=== PATIENT | female | born 1995 | race Caucasian/White ===

== ENCOUNTER 2016-09-21 07:27 | Emergency (ER) | payer MEDICAID, OTHER ==
[2016-09-21 07:46] VITALS: BP 120/72; PULSE 84; RESP 16; TEMP 98.8; O2SAT 94
[2016-09-21] MEDS ORDERED: ONDANSETRON DISINTEGRATING 4 MG TAB PO ONE (07:57)
[2016-09-21] MEDS ORDERED: NS 1,000 ML IV ONE (07:57)
--- NOTE | 2016-09-21 07:59 | UCPHY ---
H & P Patient Type: Established Chief Complaint Nursing Narrative: diarrhea last night, ross this am x 2 Time Seen by Provider: 09/21/16 07:48 HPI/ROS: This patient reports onset of diarrhea yesterday that is described as loose light brown stool-4-5 episodes. She awakened with onset of nausea and vomiting at 3 mm had 4 -5 episodes of vomiting and dry heaving since then with ongoing nausea currently. She also notes mild urinary frequency but no other urinary symptoms. She has been unable to tolerate p.o. fluids or food due to her nausea and vomiting. She notes no exacerbating or alleviating factors. ROS: Constitutional: No fevers or chills. HEENT: No cold symptoms Pulmonary: No cough or shortness of breath Cardiac: No lightheadedness or syncope GI: She reports abdominal cramping lower belly more than upper-mild most prominent shortly prior to vomiting. : She denies dysuria. Last menstrual period was August 22. No vaginal discharge. Musculoskeletal: No significant myalgias. Endocrine: No symptoms 10 point ROS is otherwise negative Source: Patient Exam Limitations: No limitations - Personal History LMP (Females 10-55): Over 28 Days Ago - Medical/Surgical History Hx Asthma: No Hx Chronic Respiratory Disease: No Hx Diabetes: No Hx Cardiac Disease: No Hx Renal Disease: No Hx Cirrhosis: No Hx Alcoholism: No Hx HIV/AIDS: No Hx Splenectomy or Spleen Trauma: No Other PMH: - Family History Significant Family History: No pertinent family hx - Social History Smoking Status: Never smoked Alcohol Use: Occasionally Drug Use: Marijuana - Physical Exam Exam: General Appearance: Moderately obese 21-year-old female Alert, no distress. Eyes: Pupils equal and round no pallor or injection. ENT, Mouth: Mucous membranes dry. Respiratory: There are no retractions, lungs are clear to auscultation. Cardiovascular: Regular rate and rhythm. Gastrointestinal: She has mild suprapubic tenderness. Hyperactive bowel sounds no guarding or rebound. No organomegaly Back: No clear CVA tenderness Neurological: Alert with no focal deficits Skin: Warm and dry, no rashes. Musculoskeletal: Neck is supple nontender. Extremities are symmetrical, full range of motion. Psychiatric: Mood and affect normal DIFFERENTIAL DIAGNOSIS: After history and physical exam differential diagnosis was considered for gastroenteritis-viral with cystitis, dehydration, pyelonephritis with complication of vomiting and loose stools, rule out Constitutional: Initial Vital Signs Temperature (C) 37.1 C 09/21/16 07:41 Heart Rate 84 09/21/16 07:41 Respiratory Rate 16 09/21/16 07:41 Blood Pressure 120/72 09/21/16 07:41 O2 Sat (%) 94 09/21/16 07:41 O2 Delivery Mode Room Air Allergies/Adverse Reactions: No Known Allergies Allergy (Unverified 10/31/14 16:55) Home Medications: Medication Instructions Recorded Cefdinir [Omnicef (*)] 300 mg PO BID #14 cap 09/21/16 Ondansetron Odt [Zofran Odt] 4 - 8 mg PO Q4PRN PRN #4 tab 09/21/16 Medical Decision Making ED Course/Re-evaluation: Urinalysis reveals pyuria [place] bacteria [place] [id number] Chemistries normal exception of mild hyperglycemia test is negative Patient is treated with IV normal saline bolus, Zofran with resolution of nausea vomiting. She tolerated p. o. fluids thereafter Ceftriaxone IV for UTI that I think is likely a pyelonephritis causing her vomiting given the associated leukocytosis, pyuria, bacteria. After treatment patient appears well. Final evidence of sepsis or other concerning findings. Rule out and she is tolerating p.o. intake at this point. - Data Points Laboratory Results: Laboratory Results 09/21/16 08:15 09/21/16 08:15 09/21/16 09/21/16 08:15 07:55 WBC 13.79 H 10^3/uL (3.80-9.50) RBC 4.76 10^6/uL (4.18-5.33) Hgb 14.1 g/dL (12.6-16.3) Hct 41.4 % (38.0-47.0) MCV 87.0 fL (81.5-99.8) MCH 29.6 pg (27.9-34.1) MCHC 34.1 g/dL (32.4-36.7) RDW 12.5 % (11.5-15.2) Plt Count 262 10^3/uL (150-400) MPV 9.5 fL (8.7-11.7) Neut % (Auto) 91.0 H % (39.3-74.2) Lymph % (Auto) 3.5 L % (15.0-45.0) [place] % (Auto) 4.4 L % (4.5-13.0) Eos % (Auto) 0.1 L % (0.6-7.6) Baso % (Auto) 0.3 % (0.3-1.7) Nucleat RBC Rel Count 0.0 % (0.0-0.2) Absolute Neuts (auto) 12.57 H 10^3/uL (1.70-6.50) Absolute Lymphs (auto) 0.48 L 10^3/uL (1.00-3.00) Absolute Monos (auto) 0.60 10^3/uL (0.30-0.80) Absolute Eos (auto) 0.01 L 10^3/uL (0.03-0.40) Absolute Basos (auto) 0.04 10^3/uL (0.02-0.10) Absolute Nucleated RBC 0.00 10^3/uL (0-0.01) Immature Gran % 0.7 % (0.0-1.1) Immature Gran # 0.09 10^3/uL (0.00-0.10) Sodium 141 mEq/L (134-144) Potassium 4.1 mEq/L (3.5-5.2) Chloride 107 mEq/L (97-110) Carbon Dioxide 21 L mEq/l (22-31) Anion Gap 13 mEq/L (8-16) BUN 10 mg/dL (7-23) Creatinine 0.6 mg/dL (0.6-1.0) Estimated GFR > 60 Glucose 115 H mg/dL (70-100) Calcium 9.1 mg/dL (8.5-10.4) Urine Color YELLOW Urine Appearance CLOUDY Urine pH 8.5 H (5.0-7.5) Ur Specific [place] 1.015 (1.002-1.030) Urine Protein NEGATIVE (NEGATIVE) Urine Ketones NEGATIVE (NEGATIVE) Urine Blood NEGATIVE (NEGATIVE) Urine Nitrate POSITIVE H (NEGATIVE) Urine Bilirubin NEGATIVE (NEGATIVE) Urine Urobilinogen 0.2 EU (0.2-1.0) Ur Leukocyte Esterase NEGATIVE (NEGATIVE) Urine RBC 1-3 /hpf (0-3) Urine WBC 15-25 H /hpf (0-3) Ur Epithelial Cells 1+ /lpf (NONE-1+) Ur Renal Epithelial Cell OCCASIONAL H /hpf (NONE SEEN) Urine Bacteria 4+ H /hpf (NONE SEEN) Urine Mucus TRACE /lpf (NONE-1+) Ur Culture Indicated? INDICATED H (NI) Urine Glucose NEGATIVE (NEGATIVE) Urine Test NEGATIVE Medications Given: Discontinued Medications Sodium Chloride (Ns) 1,000 mls @ 0 mls/hr IV ONCE ONE PRN Reason: Wide Open Stop: 09/21/16 07:58 Last Admin: 09/21/16 08:21 Dose: 1,000 mls Ceftriaxone Sodium 1 gm/ (Sodium Chloride) 100 mls @ 200 mls/hr IV EDNOW ONE PRN Reason: Protocol Stop: 09/21/16 09:14 Last Admin: 09/21/16 09:03 Dose: 100 mls Ondansetron HCl (Zofran Odt) 4 mg PO EDNOW ONE Stop: 09/21/16 07:58 Last Admin: 09/21/16 08:30 Dose: 4 mg Departure - Departure Clinical Impression: Pyelonephritis, Vomiting, Dehydration Instructions: Urinary Tract Infection in Women (ED) Additional Instructions: Diagnosis: 1. Pyelonephritis 2. Vomiting 3. Diarrhea 4. Dehydration Plan: Drink plenty fluids Zofran for nausea vomiting Start Omnicef antibiotic tomorrow. For today heart had a good dose of IV antibiotic. Yogurt or take a probiotic while on antibiotics to prevent worsening diarrhea. Imodium if needed for diarrhea Return for any significant worsening despite the treatment plan Referrals: Eveline Ordoñez PA [Primary Care Provider] - As per Instructions Prescriptions: Cefdinir [Omnicef (*)] 300 mg PO BID #14 cap Ondansetron Odt [Zofran Odt] 4 - 8 mg PO Q4PRN PRN #4 tab PRN Reason: Vomiting - PQRS PQRS Measurement: NA
[2016-09-21 08:06] LABS: COLOR YELLOW; LEUKOCYTE ESTERASE,URINE NEGATIVE (NEGATIVE); NITRITE,URINE POSITIVE (NEGATIVE)
[2016-09-21 08:14] LABS: PH,URINE 8.5 (5.0-7.5)
[2016-09-21 08:23] LABS: BACTERIA 4+ /hpf (NONE SEEN); MUCUS TRACE /lpf (NONE-1+); RENAL EPITHELIAL CELLS OCCASIONAL /hpf (NONE SEEN); WBC,URINE 15-25 /hpf (0-3)
[2016-09-21 08:38] LABS: % IMMATURE GRANULYOCYTES 0.7 % (0.0-1.1); ABSOLUTE IMMATURE GRANULOCYTES 0.09 10^3/uL (0.00-0.10); ADD DIFF? NO; ADD MORPH? NO; ADD SCAN? NO; ATYPICAL LYMPHOCYTE FLAG 0 (0-99); FRAGMENT RBC FLAG 0 (0-99); HEMATOCRIT 41.4 % (38.0-47.0); HEMOGLOBIN 14.1 g/dL (12.6-16.3); LEFT SHIFT FLG 20 (0-99); LIPEMIA HEMOLYSIS FLAG 90 (0-99); MEAN CELL HEMOGLOBIN 29.6 pg (27.9-34.1); MEAN CELL HEMOGLOBIN CONCENTR. 34.1 g/dL (32.4-36.7); MEAN PLATELET VOLUME 9.5 fL (8.7-11.7); PLATELET CLUMPS FLAG 0 (0-99); PLATELET COUNT 262 10^3/uL (150-400); RED BLOOD CELL COUNT 4.76 10^6/uL (4.18-5.33); RED CELL DISTRIBUTION WIDTH 12.5 % (11.5-15.2)
[2016-09-21 08:43] LABS: ANION GAP 13 mEq/L (8-16); CALCIUM 9.1 mg/dL (8.5-10.4); CARBON DIOXIDE 21 mEq/l (22-31); CHLORIDE 107 mEq/L (97-110); CREATININE 0.6 mg/dL (0.6-1.0); GLOMERULAR FILTRATION RATE > 60; GLUCOSE 115 mg/dL (70-100); POTASSIUM 4.1 mEq/L (3.5-5.2); SODIUM 141 mEq/L (134-144)
== END 2016-09-21 09:55 | disposition home or self-care (01) ==
LOC: CED 07:27
DX: N12 Tubulo-interstitial nephritis, not specified as acute or chronic (principal); R11.2 Nausea with vomiting, unspecified; R19.7 Diarrhea, unspecified; E86.0 Dehydration; F12.90 Cannabis use, unspecified, uncomplicated
CPT/HCPCS: 80048-PO; 81003-PO; 81015-PO; 81025-PO; 85025-PO; 96361-PO; 96365-PO; 96374-PO; 99214-PO; G0463-PO

== ENCOUNTER 2017-01-10 16:09 | Emergency (ER) | payer MEDICAID ==
[2017-01-10 16:16] VITALS: BP 139/81; PULSE 101; RESP 16; TEMP 99.3; O2SAT 95
[2017-01-10 16:26] LABS: COLOR YELLOW; LEUKOCYTE ESTERASE,URINE NEGATIVE (NEGATIVE); NITRITE,URINE NEGATIVE (NEGATIVE); PH,URINE 7.5 (5.0-7.5)
[2017-01-10] MEDS ORDERED: CEPHALEXIN 500 MG CAP PO ONE (16:43)
--- NOTE | 2017-01-10 16:47 | UCPHY ---
H & P Patient Type: Established Chief Complaint Nursing Narrative: c/o bilateral flank pain, nitrates in urine, difficulty urinating and frequency Time Seen by Provider: 01/10/17 16:36 HPI/ROS: CHIEF COMPLAINT: Dysuria, frequency and flank pain HISTORY OF PRESENT ILLNESS: Patient is a 21-year-old female who comes to the Urgent Care complaining of dysuria, frequency and flank pain. She states this is similar to previous episodes of urinary tract infections. 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 She did not take any medication. She has not had any discharge. No diarrhea. No abdominal pain. REVIEW OF SYSTEMS: Constitutional: denies: chills, fever, recent illness, recent injury EENTM: denies: blurred vision, double vision, nose congestion Respiratory: denies: cough, shortness of breath Cardiac: denies: chest pain, irregular heart rate, lightheadedness, palpitations Gastrointestinal/Abdominal: denies: abdominal pain, diarrhea, nausea, vomiting, blood streaked stools Genitourinary: See HPI Musculoskeletal: denies: joint pain, muscle pain Skin: denies: lesions, rash, jaundice, bruising Neurological: denies: headache, numbness, paresthesia, tingling, dizziness, weakness Hematologic/Lymphatic: denies: blood clots, easy bleeding, easy bruising Immunologic/allergic: denies: HIV/AIDS, transplant EXAM: GENERAL: Well-appearing, well-nourished and in no acute distress. HEAD: Atraumatic, normocephalic. EYES: Pupils equal round and reactive to light, extraocular movements intact, sclera anicteric, conjunctiva are normal. ENT: TMs normal, nares patent, oropharynx clear without exudates. Moist mucous membranes. NECK: Normal range of motion, supple without lymphadenopathy or JVD. LUNGS: Breath sounds clear to auscultation bilaterally and equal. No wheezes rales or rhonchi. HEART: Regular rate and rhythm without murmurs, rubs or gallops. ABDOMEN: Soft, nontender, normoactive bowel sounds. No guarding, no rebound. No masses appreciated. BACK: No CVA tenderness, no spinal tenderness, step-offs or deformities EXTREMITIES: Normal range of motion, no pitting or edema. No clubbing or cyanosis. NEUROLOGICAL: Cranial nerves II through XII grossly intact. Normal speech, normal gait. 5/5 strength, normal movement in all extremities, normal sensation PSYCH: Normal mood, normal affect. SKIN: Warm, dry, normal turgor, no visible rashes or lesions. Source: Patient Exam Limitations: No limitations - Personal History LMP (Females 10-55): 8-14 Days Ago - Medical/Surgical History Hx Asthma: No Hx Chronic Respiratory Disease: No Hx Diabetes: No Hx Cardiac Disease: No Hx Renal Disease: No Hx Cirrhosis: No Hx Alcoholism: No Hx HIV/AIDS: No Hx Splenectomy or Spleen Trauma: No Other PMH: heart murmur, borderline diabetes - Family History Significant Family History: No pertinent family hx - Social History Smoking Status: Former smoker Alcohol Use: Sober Drug Use: None Constitutional: Initial Vital Signs Temperature (C) 37.4 C 01/10/17 16:13 Heart Rate 101 H 01/10/17 16:13 Respiratory Rate 16 01/10/17 16:13 Blood Pressure 139/81 H 01/10/17 16:13 O2 Sat (%) 95 01/10/17 16:13 O2 Delivery Mode Room Air Allergies/Adverse Reactions: No Known Allergies Allergy (Unverified 10/31/14 16:55) Home Medications: Medication Instructions Recorded Cephalexin [Keflex] 500 mg PO TID #21 cap 01/10/17 Phenazopyridine HCl [Pyridium] 200 mg PO TID #6 tab 01/10/17 Medical Decision Making ED Course/Re-evaluation: Patient's urinalysis is negative however her symptoms are classic for urinary tract infections and she has had multiple in the past. I will start her on Keflex which has been effective for her in the past. We will send her urine for cultures. She is happy with this plan and declines any further workup or testing at this time. Differential Diagnosis: Partial list of the Differential diagnosis considered include but were not limited to; urinary tract infection, pyelonephritis, kidney stone and although unlikely based on the history and physical exam, I also considered hernia, appendicitis, diverticulitis, , ovarian cyst. I discussed these differential diagnoses and the plan with the patient as well as the usual and expected course. The patient understands that the diagnosis is provisional and that in medicine we are not always correct and that further workup is often warranted. Usual and customary warnings were given. All of the patient's questions were answered. The patient was instructed to return to the emergency department should the symptoms at all worsen or return, otherwise to followup with the physician as we discussed. - Data Points Laboratory Results: 01/10/17 01/10/17 16:15 16:15 Urine Color YELLOW Urine Appearance CLEAR Urine pH 7.5 (5.0-7.5) Ur Specific [place] 1.015 (1.002-1.030) Urine Protein NEGATIVE (NEGATIVE) Urine Ketones NEGATIVE (NEGATIVE) Urine Blood NEGATIVE (NEGATIVE) Urine Nitrate NEGATIVE (NEGATIVE) Urine Bilirubin NEGATIVE (NEGATIVE) Urine Urobilinogen 0.2 EU EU (0.2-1.0) Ur Leukocyte Esterase NEGATIVE (NEGATIVE) Ur Culture Indicated? NOT INDICATED (NI) Urine Glucose NEGATIVE (NEGATIVE) Urine Test NEGATIVE Medications Given: Discontinued Medications Cephalexin HCl (Keflex) 500 mg PO EDNOW ONE PRN Reason: Protocol Stop: 01/10/17 16:44 Last Admin: 01/10/17 16:59 Dose: 500 mg Departure - Departure Disposition: Home, Routine, Self-Care Clinical Impression: Urinary tract infection Qualifiers: Urinary tract infection type: acute cystitis Hematuria presence: without hematuria Qualified Code(s): N30.00 - Acute cystitis without hematuria Condition: Fair Instructions: Urinary Tract Infection in Women (ED) Referrals: Eveline Ordoñez PA [Primary Care Provider] - As per Instructions Prescriptions: Cephalexin [Keflex] 500 mg PO TID #21 cap Phenazopyridine HCl [Pyridium] 200 mg PO TID #6 tab - PQRS PQRS Measurement: Not applicable
== END 2017-01-10 17:07 | disposition home or self-care (01) ==
LOC: CED 16:09
DX: N30.00 Acute cystitis without hematuria (principal); B96.20 Unspecified Escherichia coli [E. coli] as the cause of diseases classified elsewhere; R73.03 Prediabetes; R01.1 Cardiac murmur, unspecified; Z87.891 Personal history of nicotine dependence
CPT/HCPCS: 81003-PO; 81025-PO; G0463-PO